=== PATIENT | female | born 1955 | race Caucasian/White ===

== ENCOUNTER 2018-11-13 09:27 | Outpatient (CLI) | payer OTHER ==
[2016-01-14 21:42] VITALS: BP 130/80
[2018-11-13 11:18] LABS: eGFR (Non-African) > 60
== END 2018-11-13 09:30 ==
LOC: LAB 09:27
PROVIDERS: ATTEND Internal Medicine Cardiovascular Disease
DX: I10 Essential (primary) hypertension (principal); R60.9 Edema, unspecified
CPT/HCPCS: 36415; 80048